=== PATIENT | male | born 1965 | race Caucasian/White ===

== ENCOUNTER 2017-10-31 05:42 | Day surgery (SDC) | payer BC ==
--- NOTE | 2017-10-30 22:43 | PDGENHP ---
History & Physical Chief Complaint: right shoulder pain History of Present Illness: 52 yo male, presenting today for right shoulder surgery by dr. kraus for right shoulder pain. Pertinent Past, Social, Family History: PMH: hypothyroid. Meds: synthroid. fh : heart disease father. soc: denies smoking, occ etoh, no rec drugs Relevant Physical Exam: RUE: grossly nvid w/ brisk cap refill, and intact axillary nerve Cardiorespiratory Assessment: rrr. ctab Assessment & Plan Assessment: 52 yo male with right shoulder pain, impingement, and ACJ arthosis, here today for surgery with dr. kraus Plan: right shoulder scope, right shoulder SAD, DCE, due to impingement and AC arthosis
[2017-10-31] MEDS ORDERED: LIDOCAINE 1% 2 ML INJ ID PRN (05:48)
[2017-10-31] MEDS ORDERED: ceFAZolin 2 GM/DEXTROSE 100 ML IV ONE (05:48)
[2017-10-31] MEDS ORDERED: LR 1,000 ML IV ONE (05:48)
[2017-10-31] MEDS ORDERED: EPINEPHrine 30 MG/30 ML MDV (0.1 MG/0.1 ML) ONE (06:49)
[2017-10-31] MEDS ORDERED: BUPIVACAINE/EPI 0.5% 30 ML SDV ONE (06:49)
[2017-10-31] MEDS ORDERED: LIDOCAINE 1% 300 MG/30 ML SDV ONE (06:49)
--- NOTE | 2017-10-31 07:08 | PDANEPAE ---
ANE History of Present Illness right shoulder ANE Past Medical History - Cardiovascular History Hx Hypertension: No Hx Arrhythmias: Yes Hx Chest Pain: No Hx Coronary Artery / Peripheral Vascular Disease: No Hx CHF / Valvular Disease: No Hx Palpitations: No Cardiovascular History Comment: Brugada Syndrome Dx in 2004 but now thinking he does not have. AICD has not fired appropriately ever. Leads now are just resting over the heart instead of in the heart muscle. Plan is to remove the device all together since they don't think he has the syndrome at all now. - Pulmonary History Hx COPD: No Hx Asthma/Reactive Airway Disease: No Hx Recent Upper Respiratory Infection: No Hx Oxygen in Use at Home: No Hx Sleep Apnea: Yes Sleep Apnea Screening Result - Last Documented: Positive Pulmonary History Comment: JOSUÉ dx 01/2017 - Neurologic History Hx Cerebrovascular Accident: No Hx Seizures: No Hx Dementia: No - Endocrine History Hx Diabetes: No Endocrine History Comment: Thyroid CA, 2012 w/ removal - Renal History Hx Renal Disorders: No - Liver History Hx Hepatic Disorders: No - Neurological & Psychiatric Hx Hx Neurological and Psychiatric Disorders: No - Cancer History Hx Cancer: Yes Cancer History Comment: Thyroid CA, 2012 w/ removal - Congenital Disorder History Hx Congenital Disorders: No - GI History Hx Gastrointestinal Disorders: No - Other Health History Other Health History: right shoulder calcium deposits - Chronic Pain History Chronic Pain: No - Surgical History Prior Surgeries: AICD insertion and multiple lead changes. Two thyroid surgeries, 2012 & 2013 ANE Review of Systems Review of systems is: negative Review of Systems: - Exercise capacity Exercise capacity: >=4 METS METS (RN): 6 METS - Pacemaker Pacemaker Type: Permanent Pacer/Defib Pacemaker Manager [employer]: [employer] Pacemaker Model: A209 Pacemaker Mode: ICD Date Pacemaker Last Checked: 09/24/17 ANE Patient History - Allergies Allergies/Adverse Reactions: No Known Allergies Allergy (Verified 10/24/17 12:33) - Home Medications Home Medications: Adult One Daily Multivit Tab 10/24/17 [Last Taken Unknown] Flaxseed Oil 10/24/17 [Last Taken Unknown] Synthroid 150 mcg (*) 10/24/17 [Last Taken Unknown] - NPO status NPO Status: no food or drink >8 hours NPO Since - Liquids (Date): 10/31/17 NPO Since - Liquids (Time): 01:30 NPO Since - Solids (Date): 10/30/17 NPO Since - Solids (Time): 19:00 - Anes Hx Anes Hx: post operative nausea - Smoking Hx Smoking Status: Never smoked - Alcohol Use Alcohol Use: Rarely - Family Anes Hx Family Hx Anesthesia Complications: none ANE Labs/Vital Signs - Vital Signs Vital Signs: reviewed preoperatively; see RN documention for details Blood Pressure: 117/75 Heart Rate: 60 Respiratory Rate: 18 O2 Sat (%): 96 Height: 177.8 cm Weight: 77.111 kg ANE Physical Exam - Airway Neck exam: FROM Mallampati Score: Class 2 Mouth exam: normal dental/mouth exam - Pulmonary Pulmonary: no respiratory distress - Cardiovascular Cardiovascular: regular rate and rhythym - ASA Status ASA Status: III ANE Anesthesia Plan Anesthesia Plan: GA w LMA
[2017-10-31] MEDS ORDERED: LIDOCAINE 2% 2 ML INJ ONE (07:27)
[2017-10-31] MEDS ORDERED: PROPOFOL 200 MG/20 ML VIAL ONE ×2 (07:27→07:48)
[2017-10-31] MEDS ORDERED: fentaNYL 100 MCG/2 ML INJ ONE ×2 (07:27→08:45)
--- NOTE | 2017-10-31 07:28 | PDHPUP ---
History & Physical Update H&P update statement: This history and physical update is based on an assessment of the patient which was completed after admission or registration (within 24 hours), but prior to the surgery/procedure. H&P update: H&P reviewed & patient examined, no change in patient's condition since H&P completed
[2017-10-31] MEDS ORDERED: DEXAMETHASONE 4 MG/ML VIAL ONE ×2 (07:59)
[2017-10-31] MEDS ORDERED: ONDANSETRON 4 MG/2 ML VIAL ONE (07:59)
[2017-10-31] MEDS ORDERED: KETOROLAC 30 MG/1 ML SDV ONE (07:59)
[2017-10-31] MEDS ORDERED: oxyCODONE IR 5 MG TAB PO PRN ×2 (09:47→09:48)
[2017-10-31] MEDS ORDERED: ONDANSETRON 4 MG/2 ML VIAL IVP PRN ×2 (09:47→09:48)
[2017-10-31] MEDS ORDERED: ACETAMINOPHEN 325 MG TAB PO PRN (09:47)
[2017-10-31] MEDS ORDERED: PROMETHAZINE HCL 25 MG/ML INJ IVP PRN ×2 (09:47→09:48)
[2017-10-31] MEDS ORDERED: ONDANSETRON DISINTEGRATING 4 MG TAB PO PRN (09:47)
--- NOTE | 2017-10-31 09:47 | POSTOPPROG ---
Post Op Note Date of Operation: 10/31/17 Surgeon: Yvrose Martinez Drafter (Cad) Electronic: eliecer olivas PA-C Anesthesia: LMA Pre-op Diagnosis: right shoulder pain, right shoulder impingment, right shoulder ACJ arthrosi Post-op Diagnosis: same Procedure: right shoulder scope, sub acromial & type 1 slap debridement, ext synovecto Inf/Abcess present in the surg proc area at time of surgery?: No EBL: Minimal Complications: none
[2017-10-31] MEDS ORDERED: NALOXONE HCL 0.4 MG/ML INJ IVP PRN ×2 (09:48→09:49)
[2017-10-31] MEDS ORDERED: ALBUTEROL 3 ML DEYVIAL IH PRN (09:48)
[2017-10-31] MEDS ORDERED: HYDROmorphONE/DILAUDID 2 MG/ML INJ IVP PRN (09:48)
[2017-10-31] MEDS ORDERED: fentaNYL 100 MCG/2 ML INJ IVP PRN (09:48)
[2017-10-31] MEDS ORDERED: ACETAMINOPHEN 500 MG TAB PO PRN (09:48)
--- NOTE | 2017-10-31 09:49 | POSTANESTH ---
Post Anesthetic Evaluation Cardiovascular Status: Normal, Stable Respiratory Status: Normal, Stable Level of Consciousness/Mental Status: Can Participate in Eval, Mildly Sleepy, Arousable Pain Control: Adequate, Prn Tx Ordered Nausea/Vomiting Control: Adequate, Prn Tx Ordered Complications Possibly Related to Anesthesia: None Noted
[2017-10-31] MEDS ORDERED: oxyCODONE IR 5 MG TAB ONE (10:40)
[2017-10-31 13:37] VITALS: BP 110/58
--- NOTE | 2017-11-25 13:58 | GOP ---
DATE OF OPERATION: 10/31/2017 SURGEON: Yvrose Martinez MD [employer] DYEING MACHINE OPERATOR: Ruiz Johnson PA-C ANESTHESIA: General. PREOPERATIVE DIAGNOSIS: Right shoulder rotator cuff impingement syndrome with associated calcific tendinitis and adhesive capsulitis. POSTOPERATIVE DIAGNOSIS: Right shoulder rotator cuff impingement syndrome with associated calcific tendinitis and adhesive capsulitis. PROCEDURE PERFORMED: 1. Arthroscopic subacromial decompression. 2. Debridement of calcium pyrophosphate crystals and hypertrophic synovitis in the subacromial space. 3. Debridement of superior labral tear - SLAP type I. 4. Manipulation under anesthetic. FINDINGS: ESTIMATED BLOOD LOSS: 5 cc. INDICATIONS: This patient is a 52-year-old male who has had shoulder pain which has failed to respond to conservative management. An MRI scan shows evidence of the above-noted preoperative diagnoses. He is admitted for surgical treatment. DESCRIPTION OF PROCEDURE: After the induction of a general anesthetic, the patient's right shoulder, arm and chest were prepped and draped in the usual fashion. Standard arthroscopic portals were used. The scope was introduced through the posterior portal and the glenohumeral joint was inspected. The intra-articular exam was remarkable for diffuse reactive synovitis. There was also a type I SLAP lesion. The frayed inner edge of the type I SLAP lesion was debrided back to a stable configuration with the rotary debrider. Although somewhat under cut, the root of the biceps was not grossly unstable when probed. The rotator cuff appeared to be intact from the intra-articular perspective, and the biceps tendon was intact although there were some neurovascular changes in the extra-articular portion. The humeral and glenoid articular surfaces were pristine. The scope was passed through the subacromial space. There was marked hypertrophic bursitis, and this was resected for therapeutic purposes and for visualization. There were also areas of calcium pyrophosphate deposition disease in the superior cuff. These were minimally debrided. As much of the calcium pyrophospate crystal deposition was debrided as possible. Some crystals were disseminated into the subacromial space. They were evacuated as best possible. The periosteal surface of the acromion was resected. The CA ligament was released from its attachment point anteriorly. The markedly prominent anterior lip to the acromion was removed with the rotary bur. The resection was tapered posteriorly to blend in nicely with the subacromial space. This nicely decompressed the subacromial space. The bursal side cuff was inspected. There were no areas of impending tear or severe compromise of the cuff tendons. At this point, the arthroscopic equipment was removed from the shoulder. The portals were infiltrated with 0.25% Marcaine solution before being closed with 5 -0 Vicryl. Steri-Strips and a sterile compressive dressing were applied and the patient was awakened from his anesthetic. Prior to the procedure, the patient's shoulder was gently manipulated. He had restriction of motion at all extremes of motion. There was no palpable release of adhesions, although I was able to put the shoulder through a fairly complete range of motion. There were no intraoperative complications. The patient was taken to recovery in good condition. COMPLICATIONS: None. /[id number]/MODL MTDD
== END 2017-10-31 14:35 | disposition home or self-care (01) ==
LOC: FSGY 05:42
PROVIDERS: ATTEND Orthopaedic Surgery
PROC: 0XQ Anatomical Regions, Upper Extremities, Repair (ICD-10-PCS; principal; 2017-10-31 07:15)
PROC: 0RNJ4ZZ Release Right Shoulder Joint, Percutaneous Endoscopic Approach (ICD-10-PCS; principal; 2017-10-31 07:15)
DX: M75.41 Impingement syndrome of right shoulder (principal); M75.31 Calcific tendinitis of right shoulder; M75.01 Adhesive capsulitis of right shoulder; E03.9 Hypothyroidism, unspecified
CPT/HCPCS: J0171; J0690; J1100; J1885; J2405; J2704; J3010